=== PATIENT | female | born 1960 | race Caucasian/White ===

== ENCOUNTER 2016-11-28 06:55 | Day surgery (SDC) | payer OTHER ==
[~2016-11-28] VITALS: Ht 152.4 cm; Wt 67.2 kg
[2016-11-28 07:18] VITALS: Ht 152.4 cm; Wt 67.2 kg
[2016-11-28 07:50] VITALS: BP 134/88; RESP 14
[2016-11-28] MEDS ORDERED: PREMARIN (07:53)
[2016-11-28] MEDS ORDERED: PAXIL (07:53)
--- NOTE | 2016-11-28 09:03 | OPPN ---
Date/Time of Note Date/Time of Note DATE: 11/28/16 TIME: 08:56 Proc Note GI Procedure Date 11/28/16 Pre-procedure Diagnosis Screening colonoscopy Post-procedure Diagnosis Screening colonoscopy Colon polyp Procedure Performed: Colonoscopy Surgeon see signature line Survey Operations Director none Anesthesia Type: moderate sedation Tourniquet Time none EBL none Transfusion required none Grafts/Implants none Tubes/Drains none Complication(s) none Pt Condition post procedure: stable Indications: screening/surveillance Operative\Procedure Findings Colonoscopy all the way into cecum Small polyp 7 mm in diameter sessile near the hepatic flexure successfully removed by cold biopsy forceps Claritin cleanliness was good Retroversion was normal Procedure Description Indication: Screening colonoscopy Consent: The risk of the procedure related and related complication anesthetic risk sedative risk all explained and informed consent was obtained. Details of the procedure Patient was brought to the GI lab sedated with incremental doses of Versed and fentanyl, totally she received 4 mg of Versed and 75 mg of fentanyl After optimal sedation digital examination done which was normal. With cold biopsy forceps Pediatric Olympus colonoscope passed with much is into the rectum advanced slowly through sigmoid descending transverse colon all the way into the cecum. Appendiceal orifice identified, IC valve identified,. Scope was slowly withdrawn. There was a polyp sessile 7 mm in diameter near the hepatic flexure successfully removed by cold biopsy forceps. Scope was then gradually withdrawn circumferentially inspecting the rest of the colon. Retroversion done which was normal. 1 or 2 diverticuli identified in the left side of the colon. Clarity and cleanliness was good Impression 1. Small sessile colon polyp near the right hepatic flexure successfully removed with cold biopsy forceps 2. Mild diverticulosis 3. Clarity and cleanliness was good 4. Negative all the way into cecum 5. Normal retroversion Plan High-fiber diet Repeat colonoscopy based on pathology findings. One copy to my office and one copy to primary MDs office DANO RODRIGUEZ MD Nov 28, 2016 09:03
[2016-11-28] MEDS ORDERED: MIDAZOLAM 1 MG/ML 2 ML INJ ONE ×2 (09:06)
[2016-11-28] MEDS ORDERED: FENTAnyl 50 MCG/ML VIAL ONE (09:06)
[2016-11-28 09:27] VITALS: BP 133/76; RESP 14
--- NOTE | 2016-11-28 10:54 | OPPN ---
Date/Time of Note Date/Time of Note DATE: 11/28/16 TIME: 08:55 Proc Note GI Procedure Date 11/28/16 Procedure Performed: Colonoscopy Surgeon see signature line Painter Airbrush none Anesthesia Type: moderate sedation Tourniquet Time none EBL none Transfusion required none Grafts/Implants none Tubes/Drains none Complication(s) none DANO RODRIGUEZ MD Nov 28, 2016 09:05
== END 2016-11-28 15:31 | disposition home or self-care (01) ==
LOC: GIL 06:55
PROVIDERS: ATTEND Internal Medicine Gastroenterology
DX: Z12.11 Encounter for screening for malignant neoplasm of colon (principal); K63.5 Polyp of colon; K57.30 Diverticulosis of large intestine without perforation or abscess without bleeding
CPT/HCPCS: 45380; J2250; J3010